=== PATIENT | male | born 1950 | race Caucasian/White ===

== ENCOUNTER → 2019-07-06 | Outpatient (REF) | payer MEDICARE, OTHER ==
[~2019-07-06] MED LIST: ASPI81TA26 PO; BUSP15TA47 PO; CRES20TA2 PO; ENAL20TA PO; FISH1000 PO; INSULANT SC; JANU100T PO; VENTAER INH; VITA200028 PO; ZOLO100T PO; ZYRTTAB8 PO
[2019-07-06 13:38] LABS: PLATELET COUNT, AUTOMATED 209 10^3/uL (150-450)
[2019-07-06 13:43] LABS: INR 1.14; PROTHROMBIN TIME 14.3 SECONDS (11.8-14.0)
[2019-07-06 13:44] LABS: PARTIAL THROMBOPLASTIN TIME 33.7 SECONDS (25.0-38.4)
== END ==
LOC: M LAB REF 13:00
PROVIDERS: ATTEND Internal Medicine Pulmonary Disease
DX: R91.8 Other nonspecific abnormal finding of lung field (principal); R79.1 Abnormal coagulation profile

== ENCOUNTER → 2019-07-20 | Outpatient (CLI) | payer MEDICARE, OTHER ==
[~2019-07-20] MED LIST changes: +ACETAMINOPHEN 325 MG TAB As Ordered ONE; +JANU100T14 PO; +LIDOCAINE 1% MDV 20ML VIAL As Ordered ONE
[2019-07-20 13:05] VITALS: BP 147/65
--- NOTE | 2019-07-21 04:55 | REP ---
CHEST, SINGLE VIEW: Single view of the chest is performed. The patient had left lung biopsy. The image is obtained in expiration. There is a small left pneumothorax. Mild left basilar atelectatic change is seen in addition to the abnormal parenchymal opacity, which was biopsied. Patient is asymptomatic. Another chest radiograph will be performed in 2 hours. Electronically Signed by Fareed Lee MD 07/21/2019 05:01 P
--- NOTE | 2019-07-21 04:55 | REP ---
CHEST, SINGLE VIEW: Single view of the chest is performed. There is a small left pneumothorax status post left lung biopsy. This is unchanged since the prior study approximately 2 hours ago. Left basilar opacity is also unchanged. Electronically Signed by Fareed Lee MD 07/21/2019 05:01 P
--- NOTE | 2019-07-21 09:43 | REP ---
CT-guided left lobe lung biopsy The procedure is performed by TOÑA Napoles, under the direct supervision of Dr. Lee. The risks and benefits of the procedure were explained to the patient and informed consent was obtained both orally and written. Directly prior to the start of the procedure, a formal timeout was done in the exam room. The left lung nodule was localized using CT guidance. Skin was prepped and draped in the usual sterile fashion. 4 ml of 1% lidocaine was used as a local anesthetic. Using CT guidance a 19/20 gauge coaxial needle biopsy system was inserted and advanced into the nodule. 4 core biopsy samples were obtained and sent to the lab. CT images obtained directly after the biopsy show a small pneumothorax. This was followed with a chest x-ray done directly after the procedure and another one after 2 hours convalescence. After the appropriate amount of monitored convalescence the patient was discharged from the department. The patient will return tomorrow to have another x-ray done to monitor the resolution of the pneumothorax. Reviewed by TOÑA Light 07/20/2019 12:52 P Electronically Signed by Fareed Lee MD 07/21/2019 09:35 A
== END ==
LOC: M IRPRO 08:28
PROVIDERS: ATTEND Internal Medicine Pulmonary Disease
DX: R91.8 Other nonspecific abnormal finding of lung field (principal); J95.811 Postprocedural pneumothorax

== ENCOUNTER → 2019-07-21 | Outpatient (CLI) | payer MEDICARE, OTHER ==
[~2019-07-21] MED LIST changes: -ACETAMINOPHEN 325 MG TAB As Ordered ONE; -LIDOCAINE 1% MDV 20ML VIAL As Ordered ONE
--- NOTE | 2019-07-21 10:15 | REP ---
CHEST, TWO VIEWS: Two views of the chest are performed. Comparison made with prior study of 07/20/2019. Patient had a left lung biopsy with a small postprocedure pneumothorax. There is decrease in size of the small pneumothorax which does persist. The patient is asymptomatic. Left basilar parenchymal opacity is unchanged. Heart and mediastinum are unchanged. IMPRESSION: Decreased size of small left pneumothorax status post left lung biopsy. Electronically Signed by Fareed Lee MD 07/21/2019 05:35 P
== END ==
LOC: M LAB 09:18 → M RAD 09:18
PROVIDERS: ATTEND Internal Medicine Pulmonary Disease
DX: J93.83 Other pneumothorax (principal)

== ENCOUNTER → 2019-07-27 | Outpatient (CLI) | payer MEDICARE, OTHER ==
[~2019-07-27] MED LIST changes: +BRIL1TAB PO
--- NOTE | 2019-07-27 12:21 | REP ---
CT of the chest without IV contrast: Comparisons are the outside chest CT dated 02/09/2019 and findings from a CT guided left lung needle biopsy dated 07/20/2019. There is a mass in the anterior segment of the left lower lobe spanning images 66 - 73 measuring up to 4.4 cm in transverse diameter, not significantly changed from the prior studies. There is a tiny satellite nodule peripheral to the mass. The satellite nodule measures approximately 7 mm in diameter. In the biopsy procedure. A small left pneumothorax developed. This has significantly decreased in size today. No other nodules or masses are wide. There are no infiltrates. There are no pleural effusions. There is no mediastinal or axillary lymphadenopathy. In the absence of IV contrast the study is insensitive for hilar lymphadenopathy. The unenhanced thoracic aorta is unremarkable. The cardiac size is normal. There is calcified atheroma in the coronary arteries. There is no pericardial effusion. The visualized upper abdominal contents are unremarkable. There is no adrenal mass. Impression: There is a 4.4 cm left lower lobe lung mass. There is a 7 mm satellite nodule peripheral to this mass. There is a small left pneumothorax, decreased in size from the 07/27/2019 images and during needle biopsy . There is no mediastinal or axillary adenopathy. Electronically Signed by Fareed Watson MD 07/27/2019 12:13 P
== END ==
LOC: M RAD 11:30
PROVIDERS: ATTEND Internal Medicine Pulmonary Disease
DX: R91.8 Other nonspecific abnormal finding of lung field (principal); J93.9 Pneumothorax, unspecified

== ENCOUNTER 2019-11-09 05:56 | Day surgery (SDC) | payer MEDICARE, OTHER ==
[~2019-11-09] VITALS: Ht 182.9 cm; Wt 94.7 kg
[2019-11-09] MEDS ORDERED: LIDOCAINE 1% SDV INJ 30 ML VIAL As Ordered ONE (06:51)
[2019-11-09] MEDS ORDERED: LIDOCAINE 4% TOPICAL SOLN 50 ML BTL As Ordered ONE (06:51)
[2019-11-09] MEDS ORDERED: EPINEPHrine 1MG/10ML SYRINGE 1.5IN As Ordered ONE (06:51)
[2019-11-09] MEDS ORDERED: LIDOCAINE VISCOUS 2% SOLN 15ML UDC As Ordered ONE (06:51)
[2019-11-09] MEDS ORDERED: THROMBIN SOLN 5,000 UNITS VIAL As Ordered ONE (06:51)
[2019-11-09] MEDS ORDERED: ROCURONIUM BROMIDE 50 MG/5 ML VIAL As Ordered ONE ×2 (07:03→10:26)
[2019-11-09] MEDS ORDERED: LIDOCAINE 2% INJ 100 MG/5 ML SDV (FOR ANES.) As Ordered ONE (07:03)
[2019-11-09] MEDS ORDERED: dexameTHASONE 4 MG/ML 1ML VIAL (J1100) As Ordered ONE (07:03)
[2019-11-09] MEDS ORDERED: SUGAMMADEX SODIUM 500 MG/5 ML VIAL (BRIDION) As Ordered ONE (07:03)
[2019-11-09] MEDS ORDERED: propofoL 200 MG/20 ML VIAL As Ordered ONE (07:03)
[2019-11-09] MEDS ORDERED: MIDAZOLAM INJ 2 MG/2 ML VIAL (J2250) As Ordered ONE (07:04)
[2019-11-09] MEDS ORDERED: ONDANSETRON 4MG/2ML VIAL (J2405) As Ordered ONE (07:04)
[2019-11-09] MEDS ORDERED: fentaNYL 100 MCG/2 ML INJECTION (J3010) As Ordered ONE (07:04)
[2019-11-09] MEDS ORDERED: CETACAINE SPRAY 5GM As Ordered ONE (07:13)
--- NOTE | 2019-11-09 08:42 | RO ---
DATE OF PROCEDURE: 11/09/2019 PREOPERATIVE DIAGNOSIS: Left lung mass. POSTOPERATIVE DIAGNOSIS: Left lung mass. PROCEDURE: Fiberoptic bronchoscopy with navigational assistance, radial ultrasound and fluoroscopy guidance. SURGEON: Dr. Jorge Alberto Kendall FIRE CHIEF'S AIDE: Dr. Daniel ANESTHESIA: General. INFORMED CONSENT: Was obtained prior to the procedure. OPERATIVE FINDINGS: Left lung mass. DESCRIPTION OF PROCEDURE: After the patient was identified and the above anesthesia given, the fiberoptic bronchoscope was easily passed via the existing endotracheal tube. It was found to be in good position. Initial cursory exam of right and left lung were undertaken. The right lung entered first. All segments and sub segments of upper, middle and lower lobe easily identified and widely patent. Minimal changes of chronic bronchitis were noted. The left lung was then entered. Upper lobe lingula widely patent. Left lower lobe widely patent except for sub segment, superior segment which had some mild compromise. The navigational probe was then placed. We were able to get within 1.5 cm of the lesion in question. With Dr. Daniel's assistance and the use of radial ultrasound, the placement appeared satisfactory and this was confirmed as well with fluoroscopy. Needle brushes as well as multiple biopsies and then cytology and micro brushes were then undertaken and the area was lavaged. Good specimens appeared to be obtained. The navigation probe was then withdrawn. The area was then lavaged in the usual fashion. No bleeding was encountered. The scope was then withdrawn and the procedure terminated. Fluoroscopic examination done immediately postprocedure showed no evidence of pneumothorax. X-rays to be done in one hour.
[2019-11-09] MEDS ORDERED: ONDANSETRON 4MG/2ML VIAL (J2405) IV PRN (09:00)
[2019-11-09] MEDS ORDERED: fentaNYL 100 MCG/2 ML INJECTION (J3010) IV PRN (09:00)
[2019-11-09] MEDS ORDERED: PERCOCET 5MG/325MG TAB PO PRN (09:00)
[2019-11-09] MEDS ORDERED: LR 1,000 ML IV SCH (09:00)
--- NOTE | 2019-11-09 09:08 | REP ---
Single view chest x-ray: History: Intra procedural spot radiograph. 3 minutes 49 seconds of fluoroscopy time is reported. Findings: A single spot radiograph of the chest documents bronchoscopic instrument position in the left base. No laterality markers are visible. Electronically Signed by Bradford Wilburn MD 11/09/2019 08:59 A
[2019-11-09 10:20] VITALS: BP 149/67
--- NOTE | 2019-11-09 10:42 | REP ---
CHEST SINGLE VIEW: Single view of the chest is performed status post bronchoscopy. There is no pneumothorax. Focal parenchymal opacity is again seen in the left lung base not significantly changed compared to prior study of 07/21/2019. The heart and mediastinum are unchanged. Right lung is clear. Electronically Signed by Fareed Lee MD 11/09/2019 08:01 P
== END 2019-11-09 10:30 | disposition home or self-care (01) ==
LOC: M SDC 05:56
PROVIDERS: ATTEND Internal Medicine Pulmonary Disease
DX: C34.32 Malignant neoplasm of lower lobe, left bronchus or lung (principal); I10 Essential (primary) hypertension; E78.00 Pure hypercholesterolemia, unspecified; E11.9 Type 2 diabetes mellitus without complications; Z98.61 Coronary angioplasty status; G47.33 Obstructive sleep apnea (adult) (pediatric); J45.40 Moderate persistent asthma, uncomplicated; J44.9 Chronic obstructive pulmonary disease, unspecified; Z86.73 Personal history of transient ischemic attack (TIA), and cerebral infarction without residual deficits; Z79.82 Long term (current) use of aspirin; Z79.4 Long term (current) use of insulin; F41.9 Anxiety disorder, unspecified; Z79.899 Other long term (current) drug therapy
CPT/HCPCS: 31623; 31624; 31627; 31629; 71045; 76000; 87070; 87071; 87102; 87116; 87205; 87206; 88104; 88173; 88305; 88341; 88342; J1100; J2250; J2405; J3010